=== PATIENT | female | born 1985 | race Caucasian/White ===

== ENCOUNTER 2018-07-28 13:12 | Emergency (ER) | payer OTHER ==
[2018-07-28] MEDS: HYDROCODONE/APAP (10/325) TAB PO (15:11)
[2018-07-28] MEDS: ONDANSETRON (ODT) 4 MG TAB ODT (15:11)
[2018-07-28 15:20] LABS: URINE BLOOD (Dip) POC Trace-lysed (NEGATIVE); URINE GLUCOSE (Dip) POC Negative (NEGATIVE); URINE KETONES (Dip) POC Trace (NEGATIVE); URINE LEUKOCYTE EST (Dip) POC 1+ (NEGATIVE); URINE NITRITE (Dip) POC Negative (NEGATIVE); URINE TOTAL PROTEIN POC Trace (NEGATIVE)
[2018-07-28 15:20] LABS: URINE PH (Dip) POC 5.5 (5.0-8.5)
[2018-07-28] MEDS: KETOROLAC 60 MG INJ IM (15:28)
== END 2018-07-28 17:51 | disposition home or self-care (01) ==
LOC: FTE 13:12
DX: M54.5 Low back pain (principal); F17.210 Nicotine dependence, cigarettes, uncomplicated
CPT/HCPCS: 72100; 81003; 81025; 96372; 99284-25